=== PATIENT | male | born 1965 | race Caucasian/White ===

== ENCOUNTER 2018-06-11 08:43 | Outpatient (CLI) | payer OTHER | END 2018-06-11 08:44 | disposition home or self-care (01) | LOC: DTY/OP 08:43 | PROVIDERS: ATTEND Surgery | DX: E66.01 Morbid (severe) obesity due to excess calories (principal) | CPT/HCPCS: 97802 ==

== ENCOUNTER 2018-07-10 05:09 | Outpatient (CLI) | payer OTHER ==
[2018-07-10 14:22] LABS: #Eosinphils 0.2 thou/uL (0.0-0.7); #Lymphocytes 3.5 thou/uL (1.20-3.40); #Neutrophils 6.8 thou/uL (1.40-6.50); %Basophils 0.3 % (0.0-1.0); %Eosinophils 1.9 % (0.0-10.0); %Lymphocytes 30.1 % (21.0-51.0); %Monocytes 8.5 % (0.0-10.0); %Neutrophils 59.3 % (42.0-75.0); Hemoglobin 17.7 g/dL (14.0-18.0); Mean Corpuscular HGB CONC 33.8 g/dL (32.0-36.0); Mean Corpuscular Hemoglobin 32.2 pg (27.0-31.0); Mean Corpuscular Volume 95.4 fL (78.0-98.0); Mean Platelet Volume 7.3 fL (7.4-10.4); Platelet Count 304 thou/uL (130-400); RBC Distribution Width 13.3 % (11.5-14.5); Red Blood Cell (RBC) Count 5.48 mill/uL (4.70-6.10); White Blood Cell (WBC) Count 11.5 thou/uL (4.8-10.8)
[2018-07-10 14:31] LABS: Hemoglobin A1c 5.1 % (4.0-6.0)
[2018-07-10 14:43] LABS: ALT (SGPT) 80 U/L (8-55); AST (SGOT) 34 U/L (5-34); Albumin 4.5 g/dL (3.5-5.0); Alkaline Phosphatase 54 U/L (40-150); Anion Gap 12 mmol/L (10-20); BUN (Urea Nitrogen) 20 mg/dL (8.4-25.7); Bilirubin, Direct 0.2 mg/dL (0.1-0.3); Bilirubin, Total 0.3 mg/dL (0.2-1.2); Calc. Creatinine Clearance 0 mL/min (70-130); Calcium 10.4 mg/dL (7.8-10.44); Carbon Dioxide 30 mmol/L (22-29); Chloride 99 mmol/L (98-107); Estimated GFR-MDRD 83; Globulin 3.8 g/dL (2.4-3.5); Glucose 94 mg/dL (70-105); Potassium 4.2 mmol/L (3.5-5.1); Protein, Total 8.3 g/dL (6.0-8.3); Sodium 137 mmol/L (136-145)
--- NOTE | 2018-07-10 14:44 | RAD ---
CHEST TWO VIEWS: History: Pre-operative exam. Comparison: 06-13-11 FINDINGS: Normal cardiac silhouette. The pulmonary vessels and hilum are normal. Costophrenic angles are clear. No masses or consolidation. No pneumothorax or acute osseous abnormalities. Stable solitary screw pr ojecting over the left glenoid. IMPRESSION: No acute cardiopulmonary process. POS: [facility]
--- NOTE | 2018-07-13 16:32 | EKG ---
Test Reason : Blood Pressure : / mmHG Vent. Rate : 101 BPM Atrial Rate : 312 BPM P-R Int : 000 ms QRS Dur : 092 ms QT Int : 348 ms P-R-T Axes : 000 044 028 degrees QTc Int : 451 ms Atrial fibrillation with rapid ventricular response Abnormal ECG No previous ECGs available Confirmed by DR. Jameson VILLASEÑOR ([id number]) on 07/13/2018 4:32:39 PM Referred By: TRINA Confirmed By:DR. Jameson VILLASEÑOR
== END 2018-07-10 05:10 | disposition home or self-care (01) ==
LOC: LABBT 05:09
PROVIDERS: ATTEND Surgery
DX: Z01.818 Encounter for other preprocedural examination (principal); E66.01 Morbid (severe) obesity due to excess calories
CPT/HCPCS: 71046; 80053; 80076; 83036; 85025; 93005; 93010

== ENCOUNTER 2018-07-10 13:00 | Inpatient (IN) | payer OTHER ==
[2018-07-12] MEDS ORDERED: Fentanyl 250 MCG/5 ML VIAL ONE (06:10)
[2018-07-12] MEDS ORDERED: Lidocaine 2% Jelly 5 ML TUBE ONE (06:10)
[2018-07-12] MEDS ORDERED: Midazolam HCl 2 mg/2 ml Vial ONE (06:10)
[2018-07-12] MEDS ORDERED: Heparin 5,000 UNITS/ML VIAL ONE (06:40)
[2018-07-12] MEDS ORDERED: Bupivacaine/Epinephrine 0.25% 30 ML VIAL ONE (06:58)
[2018-07-12] MEDS ORDERED: Ondansetron HCl/PF 4 MG/2 ML Vial IVP PRN (08:51)
[2018-07-12] MEDS ORDERED: Promethazine HCl 25 MG/ML VIAL IM PRN ×3 (08:51→09:51)
[2018-07-12] MEDS ORDERED: Promethazine HCl 25 MG/ML VIAL SLOW IVP PRN (08:51)
[2018-07-12] MEDS ORDERED: Fentanyl 100 MCG/2 ML VIAL ONE ×2 (09:03→09:19)
[2018-07-12] MEDS ORDERED: Zolpidem Tartrate 5 MG TAB PO PRN (09:15)
[2018-07-12] MEDS ORDERED: fentaNYL Citrate/PF 2,000 MCG in Sodium Chloride 0.9% 60 ML IV PRN (09:15)
[2018-07-12] MEDS ORDERED: diphenhydrAMINE 50 MG/ML VIAL IM/IV PRN (09:15)
[2018-07-12] MEDS ORDERED: Ondansetron PF 4 MG/2 ML Vial IVP PRN ×2 (09:15→09:51)
[2018-07-12] MEDS ORDERED: Naloxone HCl 0.4 mg/ml Vial IV PRN (09:15)
[2018-07-12] MEDS ORDERED: diphenhydrAMINE 25 MG CAP PO PRN (09:15)
[2018-07-12] MEDS ORDERED: diphenhydrAMINE 50 MG/ML VIAL IVP PRN (09:51)
[2018-07-12] MEDS ORDERED: Dextrose 5% in Water 1,000 ML IV PRN (09:51)
[2018-07-12] MEDS ORDERED: Hydrocodone-Acetamin 15 ML UDCUP PO PRN (09:51)
[2018-07-12] MEDS ORDERED: Dextrose 50% Abboject 50 ML SYRINGE SLOW IVP PRN (09:51)
[2018-07-12] MEDS ORDERED: hydrALAZINE 20 MG/ML VIAL SLOW IVP PRN (09:51)
[2018-07-12] MEDS ORDERED: Losartan/Hydrochlorothiazide 100 mg/25 mg Tablet PO SCH (10:30)
[2018-07-12] MEDS ORDERED: Pantoprazole 40 MG VIAL IVP SCH (10:30)
[2018-07-12 10:31] VITALS: BMI 43.7
[2018-07-12] MEDS ORDERED: Sodium Chloride 0.9% (PF) 10 ML VIAL FS PRN (10:31)
--- NOTE | 2018-07-12 10:50 | OP ---
DATE OF PROCEDURE: 07/12/2018 PREOPERATIVE DIAGNOSES: 1. Morbid obesity with a body mass index of 44. 2. Hypertension. POSTOPERATIVE DIAGNOSES: 1. Morbid obesity with a body mass index of 44. 2. Hypertension. PROCEDURES PERFORMED: 1. Laparoscopic sleeve gastrectomy with Elmer staple line reinforcements and 38-[place] bougie. 2. Esophagogastroduodenoscopy. ANESTHESIA: General. ESTIMATED BLOOD LOSS: 50 mL. COMPLICATIONS: None. FINDINGS: Normal postoperative EGD. DESCRIPTION OF PROCEDURE: The patient was taken to the operating room and laid supine on the table. After general anesthetic was obtained, the arms and legs were double strapped to bariatric table. The abdomen was shaved, prepped, and draped in a sterile fashion. Left subcostal 5-mm Optiview trocar was placed in the usual fashion without injury and high-flow pneumoperitoneum was obtained. Left and right abdominal 12-mm ports as well as a right subcostal 5-mm port were placed under direct visualization. The Jose was brought in through a 5-mm incision made at the xiphoid and used to raise the liver off the GE junction. Short gastrics were taken down from a distance of 6 cm proximal to the pylorus all the way up to the angle of His. The angle of His, posterior fundus, and left sejal of diaphragm was completely dissected. There was no hiatal hernia. A 38-bougie was brought in and its tip left in the antrum of the stomach. Multiple loads of the [facility] stapling device with Elmer staple line reinforcements were used to perform the sleeve. The first was fired at the distance of 6 cm proximal to the pylorus angled up towards the incisura. Multiple loads were then fired up along the bougie. Stomach was completely transected at the angle of His. Stomach was removed from the left abdominal incision. This fascial defect was closed using GraNee needle and Vicryl tie. All port sites were infiltrated using local anesthetic. EGD scope was passed into esophagus, stomach to the level of the duodenum without obstruction. There was no stricture at the incisura. There was no evidence of staple line involvement of the GE junction. EGD scope was used to decompress the stomach, it was pulled and removed. Jose retractor was removed under direct visualization without bleeding. Pneumoperitoneum was let down. Vicryl was used to close the fascial defect from the left abdominal incisions. All incisions were irrigated and closed using 4-0 Monocryl and Dermabond. The patient was sent to Recovery in stable condition. All instrument counts, needle counts, and lap counts were correct. Job ID: [id number]
[2018-07-12] MEDS: Acetaminophen 1,000 MG in Premix Bag 1 BAG IVPB SCH ×2 (12:34→19:14)
[2018-07-12] MEDS: D5 1/2 NS w/20 mEq KCL 1,000 ML IV SCH ×2 (12:34→19:14)
[2018-07-12] MEDS ORDERED: Enoxaparin Sodium 40 MG/0.4 ML SYRINGE SC SCH (21:00)
[2018-07-13] MEDS: Acetaminophen 1,000 MG in Premix Bag 1 BAG IVPB SCH ×2 (00:12→06:42)
[2018-07-13] MEDS: D5 1/2 NS w/20 mEq KCL 1,000 ML IV SCH ×2 (02:10→08:20)
--- NOTE | 2018-07-13 07:10 | PDOC.GSPN ---
Surgery Progress Note: Subj - Subjective Patient reports: no new complaints, afebrile Narrative: Patient is a 53 yo male post op day 1 for gastric sleeve. He is resting well, ambulated 4 times around the gutierrez yesterday, is tolerating clear fluids without n/v. He has some pain with use of spirometer but is otherwise controlled. He denied subj fever, chills, SOB, chest pain, dairrhea, difficulties with urination. Surgery Progress Note: Obj - Vital signs Vital signs: Vital Signs - Most Recent Temp Pulse Resp BP Pulse Ox 97.4 F L 68 20 162/86 H 94 L 07/13/18 04:20 07/13/18 04:20 07/13/18 04:20 07/13/18 04:20 07/13/18 04:20 - Physical Exam General: no distress Neck: trachea midline Cardiovascular: regular rate and rhythm, no murmur Respiratory: clear to auscultation, breath sounds present Abdomen: soft, positive bowel sounds Musculoskeletal: normal posture Psychiatric: speech is normal Wound: dressing clean,dry,intact, healing well Surgery Progress Note: Results - Labs Result Diagrams: 07/13/18 07:57 07/13/18 07:57 Surgery Progress Note: A/P - Problem (1) HTN (hypertension) Current Visit: Yes Code(s): I10 - ESSENTIAL (PRIMARY) HYPERTENSION Status: Acute Assessment and Plan: Patient hypertensive with systolic in 160s- continue home medications as labs are stable, and patient is tolerating clear liquids (2) Post-op pain Current Visit: Yes Code(s): G89.18 - OTHER ACUTE POSTPROCEDURAL PAIN Status : Acute Assessment and Plan: controlled, continue current management (3) Morbid obesity Current Visit: Yes Code(s): E66.01 - MORBID (SEVERE) OBESITY DUE TO EXCESS CALORIES Status: Acute Assessment and Plan: PO day 1 gastric sleeve: patient is tolerating clear liquids, advance to full liquids later today and DC if tolerated. Continue use of incentive spirometry and ambulation
[2018-07-13 08:40] LABS: #Basophils 0.1 thou/uL (0.0-0.2); #Lymphocytes 2.7 thou/uL (1.20-3.40); #Monocytes 0.9 thou/uL (0.11-0.59); #Neutrophils 8.9 thou/uL (1.40-6.50); %Basophils 0.5 % (0.0-1.0); %Eosinophils 0.3 % (0.0-10.0); %Lymphocytes 21.2 % (21.0-51.0); %Monocytes 7.3 % (0.0-10.0); %Neutrophils 70.7 % (42.0-75.0); Hemoglobin 13.5 g/dL (14.0-18.0); Mean Corpuscular HGB CONC 32.5 g/dL (32.0-36.0); Mean Corpuscular Hemoglobin 31.7 pg (27.0-31.0); Mean Corpuscular Volume 97.5 fL (78.0-98.0); Mean Platelet Volume 7.2 fL (7.4-10.4); Platelet Count 228 thou/uL (130-400); RBC Distribution Width 13.4 % (11.5-14.5); Red Blood Cell (RBC) Count 4.25 mill/uL (4.70-6.10); White Blood Cell (WBC) Count 12.5 thou/uL (4.8-10.8)
[2018-07-13 08:48] LABS: Anion Gap 10 mmol/L (10-20); BUN (Urea Nitrogen) 12 mg/dL (8.4-25.7); Calc. Creatinine Clearance 202 mL/min (70-130); Calcium 9.1 mg/dL (7.8-10.44); Carbon Dioxide 27 mmol/L (22-29); Chloride 104 mmol/L (98-107); Estimated GFR-MDRD Greater than 90; Glucose 119 mg/dL (70-105); Sodium 137 mmol/L (136-145)
[2018-07-13] MEDS ORDERED: Pantoprazole 40 MG VIAL IVP SCH (09:00)
[2018-07-13] MEDS ORDERED: Losartan/Hydrochlorothiazide 100 mg/25 mg Tablet PO SCH (09:00)
[2018-07-13] MEDS ORDERED: Hydrocodone-Acetamin 15 ML UDCUP PO PRN (11:04)
[2018-07-13 12:12] VITALS: BP 167/88; TEMP 98.3
--- NOTE | 2018-07-13 13:01 | DIS ---
DATE OF ADMISSION: 07/12/2018 DATE OF DISCHARGE: 07/13/2018 ADMITTING DIAGNOSES: Morbid obesity and hypertension. DISCHARGE DIAGNOSES: Morbid obesity and hypertension. PROCEDURES: Laparoscopic sleeve gastrectomy and esophagogastroduodenoscopy by Dr. Wiseman without complication. CONDITION ON DISCHARGE: Improved. STAFF: Jaquan Wiseman MD HOSPITAL COURSE: On postop day #1, the patient is doing well, tolerating liquids. He is ambulatory. He is afebrile, and his vital signs are stable. He is discharged home. He will follow up with me in the office in 2 weeks. Job ID: [id number]
== END 2018-07-13 13:32 | disposition home or self-care (01) | DRG 621 ==
LOC: SURG A 07-12 06:00
PROVIDERS: ADMIT Surgery; ATTEND Surgery
PROC: 0DB64Z3 Excision of Stomach, Percutaneous Endoscopic Approach, Vertical (ICD-10-PCS; principal; 2018-07-12)
PROC: 0DJ08ZZ Inspection of Upper Intestinal Tract, Via Natural or Artificial Opening Endoscopic (ICD-10-PCS; 2018-07-12)
DX: E66.01 Morbid (severe) obesity due to excess calories (principal); I10 Essential (primary) hypertension; Z68.41 Body mass index [BMI] 40.0-44.9, adult
CPT/HCPCS: 36415; 80048; 85025; 88307; 88312; 94760; C9113; J0131; J1644; J1650; J2250; J3010; J7050

== ENCOUNTER 2018-07-11 14:12 | Outpatient (CLI) | payer SELFPAY ==
--- NOTE | 2018-07-13 16:36 | EKG ---
Test Reason : Blood Pressure : / mmHG Vent. Rate : 073 BPM Atrial Rate : 073 BPM P-R Int : 186 ms QRS Dur : 088 ms QT Int : 396 ms P-R-T Axes : 061 067 048 degrees QTc Int : 436 ms Normal sinus rhythm Cannot rule out Anterior infarct , age undetermined Abnormal ECG When compared with ECG of 10-JUL-2018 13:55, (Unconfirmed) Sinus rhythm has replaced Atrial fibrillation Confirmed by DR. Jameson VILLASEÑOR ([id number]) on 07/13/2018 4:36:36 PM Referred By: TRINA Confirmed By:DR. Jameson VILLASEÑOR
== END 2018-07-11 14:13 | disposition home or self-care (01) ==
LOC: LABBT 14:12
PROVIDERS: ATTEND Surgery
DX: Z01.810 Encounter for preprocedural cardiovascular examination (principal); E66.01 Morbid (severe) obesity due to excess calories
CPT/HCPCS: 93005; 93010